=== PATIENT | female | born 1970 | race African-American/Black ===

== ENCOUNTER 2019-06-03 14:36 | Emergency (ER) | payer MEDICARE, MEDICAID, SELFPAY ==
[2019-06-03 14:36] VITALS: BP 115/79; PULSE 108; RESP 18; TEMP 36.6; O2SAT 99; BMI 22.8
--- NOTE | 2019-06-03 15:05 | ED.DCSUM_ITS ---
History of Present Illness Chief Complaint: Abd Pain Detail of Chief Complaint: History of fibroids, history of chlamydia, diverticulitis Informant: Patient Pain: Pelvic Pain, - - And left lower quadrant abdominal pain Onset: Weeks - Constant achy pain pelvis and intermittent sharp tingly pain left lower quadrant Context: Sudden Onset - This episode of pain started Thursday and patient is referring to the left lower quadrant pain and bilateral pelvic pain Timing: Continuous, Intermittent Quality: Aching, Sharp Location: LLQ, - - And bilateral pelvic Current Severity: Moderate Maximum Severity: Severe Worsened by: - - Nothing Relieved by: - - Nothing Issue: Negative for: Vaginal bleeding, Passing clots, Passing tissue - Vaginal Discharge Onset: - - There is no vaginal discharge Associated Symptoms: Irregular Period. Negative for: Dysuria, Frequency, Urgency, Hematuria Last known menstrual period: Past month Sexually: Inactive Control: No control P: 2 Ab: 0 Narrative: Patient is a middle-aged woman who recently returned to [place] who presents with bilateral pelvic pain that is been constant and intermittent left lower quadrant pain is described as a sharp tingling sensation. She states the pain started this past Thursday. She also made comment she has been having problems with pelvic pain for some time. She had an ultrasound at [facility] April 17 with the following findings: 1. Stable appearance of a peripheral calcified fibroid of the anterior uterine fundus that measures 4.3 cm in its greatest diameter 2. Enlargement of the right adnexa containing a septated cystic mass that measures 5.8 x 4.0 x 4.4 cm with no solid intramural nodule 3. Dilated tubular structure measuring 1.4 cm in diameter left adnexa likely containing debris and could represent hydrosalpinx 4. Physiologic appearing left ovarian follicle measuring 1.6 cm in diameter 5. Normal arterial and venous blood flow Patient states she was informed that she has chlamydia. 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 She denies dysuria, frequency, urgency or hematuria. She denies vaginal bleeding or vaginal discharge. She denies any vaginal lesions. She denies radiation of the pain. Prior similar symptoms: Yes Recent Illness/Hospitalization: Yes - Past Medical History (1) History of gastroesophageal reflux (GERD) Status: Acute (2) Recent diagnosis chlamydia Status: Acute (3) History of uterine fibroid Status: Acute Past Medical History - Allergies and Home Meds Allergies/Adverse Reactions: Allergies doxycycline Allergy (Verified 06/03/19 14:40) Rash naproxen [From Naprosyn] Adverse Reaction (Verified 06/03/19 14:40) Abd cramps/diarrhea Primary Care Physician: Luis Antonio Eubanks,Out of [NON-STAFF] - Prior records reviewed: No Surgical History: noncontributory Lives: Alone Alcohol: Rare Drugs: None Review of Systems General: Denies: Chills, Fever, Malaise, Sweats Eyes: Denies: Visual changes - bilaterally, Diplopia ENT: Denies: Rhinorrhea, Sore throat Cardiovascular: Denies: Chest pain, Palpitations Respiratory: Denies: Dyspnea, Cough, Dyspnea on exertion Gastrointestinal: Reports: Abdominal pain, - - No change in the size, c onsistency or color of stool. Furthermore, patient has not noted any blood or mucus in her stool.. Denies: Nausea, Vomiting, Diarrhea, Constipation, Melena, Hematochezia Genitourinary: Denies: Dysuria, Hematuria, Frequency Musculoskeletal: Denies: Myalgias, Arthralgias, Neck pain, Back pain, Swelling, Extremity Pain Skin: Denies: Rash, Wounds Neurological: Denies: Headache, Weakness, Numbness Hematologic: Denies: Easy bruising, Easy bleeding Physical Exam Vital Signs/Narrative: Vital Signs Temp Pulse Resp BP Pulse Ox 06/03/19 14:36 98 F 108 H 18 115/79 99 Inital Vital Signs reviewed: Yes General: Well nourished, Well developed Head: Normocephalic, Atraumatic Eyes: Perrl, EOMI ENT: Moist mucous membranes, No rhinorrhea Neck: Supple, Nontender Cardiovascular: Regular rate, Regular rhythm, No murmurs Respiratory: No distress, CTA bilaterally, Chest nontender Abdomen: Soft, Nondistended, Normal bowel sounds, Tender - Ports tenderness. There was no grimacing or guarding etc. : Speculum exam: Normal external genitalia, No vaginal lesions, No vaginal discharge, No blood in vault, No active bleeding Bimanual exam: No cervical motion tenderness, Os closed, Nontender uterus, Nontender adnexa, right, Nontender adnexa, left, No mass to adnexa, bilat, No mass to adnexa, right, No mass to adnexa, left, Uterine Mass - There is a pa lpable bowel firm mass consistent with anteriorly placed calcified fibroid. Back: Nontender, Normal Inspection Extremities: Nontender, No edema Skin: Normal color, No rash Neurological: Alert, Oriented x3, Cranial nerves II-XII grossly intact, Normal Strength, Normal Sensation Psychological: Normal affect Diagnostic/Tx/Re-eval - Medical Decision/Diagnostic Studies Frontal diagnosis would include complications of PID, diverticulitis, ovarian torsion (unlikely), ruptured ovarian cyst pain secondary to uterine fibroid. Work-up will include appropriate blood work UA pelvic exam and ultrasound if indicated. Patient's work-up is unremarkable. Suspect her left lower quadrant/pelvic pain is secondary to PID. Since she reports allergy to doxycycline she was treated with levofloxacin. She was instructed to follow-up with her lpn cma. ED Disposition - Plan for ED Patient: Disposition: Home or Assisted Living Diagnosis: PID (acute pelvic inflammatory disease), Fibroid, uterine Instructions: Acute Salpingitis, Uterine Fibroids Prescriptions: Levofloxacin [Levaquin] 500 mg PO BID #20 tab Prescription Printed Referrals: [facility] Doctor,Out of [NON-STAFF] - Leigha Jo MD [STAFF PHYSICIAN] - 3-5 Days if not improving
[2019-06-03 15:23] LABS: Bacteria 0 SEEN /hpf (None Seen); Mucous, Urine 0 SEEN /hpf (<or=2+); Red Blood Cells-Urine 0 SEEN /hpf (0-5); White Blood Cells 0 SEEN /hpf (0-5)
[2019-06-03 15:25] LABS: Color, Urine Yellow (Yellow); Glucose, Dipstick Normal (Normal); Ketone-Dipstick Negative (Negative); Leukocyte Esterase-Dipstick Negative /ul (Negative); Nitrite-Dipstick Negative (Negative); Occult Blood-Urine Negative /ul (Negative); Protein-Dipstick Negative (Negative); Urine Bilirubin Dipstick Negative (Negative); Urine Clarity Clear (Clear); Urine Urobilinogen Normal (Normal)
[2019-06-03 15:45] LABS: Absolute Lymphocyte Count 2.13 X10^3/uL (0.83-4.51); Basophil# 0.01 X10^3/uL; Basophil% 0.1 % (0-1); Eosinophil# 0.09 X10^3/uL; Eosinophils% 1.3 % (0-5); Hematocrit 43.6 % (37-47); Hemoglobin 14.2 g/dL (12.0-15.0); Lymphocyte # 2.13 X10^3/ul (4.0); Lymphocyte % 31.8 % (19-41); Mean Corp Hgb Conc 32.6 g/dL (32-36); Mean Corpuscular Hgb 29.2 pg (27.0-32.0); Mean Corpuscular Volume 89.7 fL (81-99); NRBC Flagged by Analyzer 0 % (0-5); Neutrophil # 4.04 X10^3/uL (2.7-7.7); Neutrophil % 60.5 % (47-70); Platelet Count 229 K/mm3 (150-450); RBC Distribution Width CV 12.1 % (11.6-14.6); RBC Distribution Width SD 40.2 fl (35.1-43.9); Red Blood Count 4.86 M/mm3 (4.2-5.4); White Blood Count 6.7 K/mm3 (4.4-11.0)
[2019-06-03 15:49] LABS: Squamous Epithelial Cells - UA 0-5 SEEN /hpf (5-10)
[2019-06-03 16:16] LABS: Internal QC Validated? YES +Cl - CLEAR BKGD
[2019-06-03 16:17] LABS: Pregnancy, Serum, hCG Quali. NEGATIVE Negative
[2019-06-03 16:19] LABS: Anion Gap 3 (5-15); BUN 7 mg/dL (7-18); BUN/Creat Ratio 7.1 RATIO (10-20); Calcium,Total 8.7 mg/dL (8.5-10.1); Chloride 106 mmol/L (98-107); Creatinine, Serum 0.98 mg/dL (0.55-1.02); EST Glomerular Filtration Rate 64 mL/min (>60); Est Glom Filt Rate - Afr Amer 78 mL/min (>60); Estimated Creatinine Clearance 71.59 ml/min; Glucose 92 mg/dL (74-106); Potassium 3.6 mmol/L (3.5-5.1); Sodium Level 137 mmol/L (136-145)
[2019-06-03 18:20] VITALS: RESP 16
== END 2019-06-03 18:21 | disposition home or self-care (01) ==
PROVIDERS: Emergency Provider Emergency Medicine; Family Provider Family Medicine; PCP Family Medicine
DX: N73.0 Acute parametritis and pelvic cellulitis (principal); D25.9 Leiomyoma of uterus, unspecified; K21.9 Gastro-esophageal reflux disease without esophagitis; Z86.19 Personal history of other infectious and parasitic diseases; Z87.19 Personal history of other diseases of the digestive system
CPT/HCPCS: 80048; 81001; 84703; 85025; 99283; A4216